=== PATIENT | female | born 1940 | race Caucasian/White ===

== ENCOUNTER 2017-02-14 06:08 | Inpatient (IN) | payer MEDICARE, OTHER ==
[~2017-02-14] VITALS: Ht 157.5 cm; Wt 53.6 kg
[2017-02-14] VITALS (14 sets, daily range): BP systolic 133–191; BP diastolic 68–93; PULSE 60–88; RESP 16–26; O2SAT 82–100
[~2017-02-14 06:08] MED LIST: Albuterol Sulfate INH; Aspirin PO; BALS750C PO; CHOL40003 PO; DENO60DI SQ; FLUT12AE6 IH; IBUP800T28 PO; LACT1CAP37 PO; OMEP-113 PO; TRIA60LO3 TOP
--- NOTE | 2017-02-14 06:10 | ED.REPORT ---
HPI-General Illness Date of Service Feb 14, 2017 ED Provider: Mattie Lubin MD A pleasant 76 year old female with a history of asthma, COPD, paroxysmal atrial fibrillation presents to the ER via EMS due to shortness of breath, and O2 saturation in the mid-80's overnight. Symptoms have been treated with home nebulizers with no relief. She also reports nausea with onset of respiratory symptoms, palpitations throughout the night, insomnia secondary to symptoms, and a single bout of diarrhea this morning. Patient denies chest pain, vomiting , hematemesis, bloody/tarry stools, and changes in bowel/urinary habits. Currently symptoms are markedly improved. On January 15, 2017 patient had a CVA and had TPA, residual visual changes. At that time she was found to have atrial fibrillation and started on Pradaxa 150mg, and Toprol 25mg for PSVT. Since her hospitalization she has noticed some mild swelling of her right ankle. She has been on home O2 at night since her stroke. Nursing Notes Stated Complaint: SHORT OF BREATH Nursing Notes Reviewed: Yes Allergies: Coded Allergies: Contrast Media (Verified Allergy, Severe, Shortness of Breath, 08/31/13) Bisphosphonates (Verified Allergy, Unknown, 08/31/13) Penicillins (Verified Allergy, Unknown, 08/31/13) codeine (Verified Allergy, Unknown, 08/31/13) nitrofurantoin (Verified Allergy, Unknown, 08/31/13) Scheduled ([Albuterol Sulfate]) 90 MCG INH 2 puffs q 4-6hr prn ([Aspirin]) 81 MG PO DAILY Balsalazide Disodium (Balsalazide Disodium) 750 Mg Capsule 1,500 MG PO BID Cholecalciferol (Vitamin D3) (Vitamin D3) 2,000 Unit Capsule 2,000 UNIT PO DAILY Denosumab (Prolia) 60 Mg/1 Ml Syringe 60 MG SQ [id number] Fluticasone/Salmeterol (Advair Hfa 230-21 Mcg Inhaler) 12 Gm Hfa.aer.ad 1 PUFF IH BID Lactobacillus Rhamnosus GG (Culturelle) 1 Each Capsule 1 EACH PO BIDWM Omeprazole Magnesium (Omeprazole) 20 Mg Capsule.dr 20 MG PO BID Triamcinolone Acetonide (Triamcinolone Acetonide) 60 Ml Lotion 1 APPLIC TOP BID Scheduled PRN Ibuprofen (Ibuprofen) 800 Mg Tablet 800 MG PO DAILY PRN PRN For Pain General Time Seen by MD: 06:10 Chief Complaint Other (Shortness of Breath) Hx Obtained From: Patient, EMS Arrived By: Ambulance Sudden in Onset?: No Onset Occurred: Yesterday Symptom Duration: Since onset Associated with: Reports: Nausea, Denies: Chest pain, Vomiting Pertinent Negative: Pt denies other symptoms Context Related History: Reports Asthma, Reports COPD Similar Sx Previous: Yes Past Medical History Past Medical History Notes: CODE STATUS: FULL CODE Past Medical History Constipation Chronic back pain COPD Kumar's esophagus CVA January 15, 2017 had TPA, residual visual changes At that time she was found to have atrial fibrillatino and started on Pradaxa 150mg and Toprol 25mg for PSVT Reports: Asthma, Stroke Reports: Atrial fibrillation (paroxysmal) Past Surgical History Hysterectomy back surgery Smoking History Current Every Day Smoker Ambulatory Status Independent Review of Systems Full Review of Systems Constitutional: Denies: Chills, Fever Respiratory: Reports: Shortness of breath, Denies: Non-productive cough Cardiovascular: Reports: Palpitations, Denies: Chest pain GI: Reports: Diarrhea, Nausea, Denies: Abdominal pain, Bloody/tarry stool, Hematemesis, Hematochezia, Melena , Vomiting Psychiatric: Reports: Insomnia Complete sys rev & neg: except as marked. Physical Exam Vital Signs Vital Signs Date Time Temp Pulse Resp B/P Pulse Ox O2 Delivery O2 Flow Rate FiO2 02/14/17 08:55 65 26 176/83 95 Nasal Cannula 2 02/14/17 08:14 79 22 91 albuterol tx 02/14/17 08:00 88 20 97 Nasal Cannula 2 02/14/17 07:55 85 25 82 Room Air 02/14/17 06:15 36.9 72 24 169/93 100 Simple Mask 6 Initial VS: Reviewed Neck: Supple, Non-tender, Full range of motion Abdomen / GI: Soft, Non-tender, No guarding, No rebound, No distention Extremities: Vascular intact, Neuro intact, No swelling, No tenderness Skin: Warm, Dry, No cyanosis Psychiatric: Mood/affect normal, Behavior normal, Normal thought content General/Constitutional: Awake, Alert, Well developed Appearance / Presentation: Positive: Cachectic Head / Eyes: Normocephalic, PERRL, EOMI Respiratory / Chest: No rales, No rhonchi, No stridor, No chest tenderness, No chest wall deformity Wheezing / Retractions: Positive: Wheeze insp/exp diffuse Scattered wheezes throughout, worse in the lower lung guadarrama. Cardiovascular: No murmurs Heart Rate / Rhythm: Positive: Irregular rhythm, Tachycardia Difficult to hear over breath sounds. Skin: Warm, Dry, Intact Color / Condition: Positive: Rash present Rash / Lesion Notes: Scattered mild psoriatic plaques. Neurologic: Oriented X3, Speech NL, No motor deficits, No sensory deficits, CN II - XII intact, Cerebellar NL, Memory NL Residual peripheral visual deficits from recent stroke, otherwise normal neurologically. Interpretation & Diagnostics Lab Results Interpretation Result Diagram: 02/14/17 0645 02/14/17 0610 Test 02/14/17 06:10 02/14/17 06:45 02/14/17 06:50 02/14/17 07:55 D-Dimer 1.60mg/L FEU (<0.50) Hold Blue Top Tube Received (Received) Sodium Level 142mEq/L (134-144) Potassium Level 4.4mEq/L (3.5-5.2) Chloride Level 103mEq/L (97-108) Carbon Dioxide Level 24mmol/L (18-29) Blood Urea Nitrogen 21mg/dL (8-27) Creatinine 0.83mg/dL (0.57-1.00) Estimat Glomerular Filtration Rate 96mL/min (>59) Glucose Level 152mg/dL (60-99) Calcium Level 9.5mg/dL (8.5-10.1) Magnesium Level 2.1mg/dL (1.6-2.6) Total Bilirubin 0.4mg/dL (0.0-1.2) Aspartate Amino Transf (AST/SGOT) 28U/L (0-50) Alanine Aminotransferase (ALT/SGPT) 13U/L (0-32) Alkaline Phosphatase 92U/L (25-165) Troponin T 0.010ug/L (0.0-0.011) Pro-B-Type Natriuretic Peptide 1127pg/mL (0-738) Total Protein 7.9g/dL (6.4-8.4) Albumin 4.4g/dL (3.4-5.0) Procalcitonin 0.05ng/mL (0.00-0.08) Hold [place] Top Tube Received (Received) White Blood Count 13.5th/mm3 (3.8-10.1) Red Blood Count 4.80mil/mm3 (3.90-5.20) Hemoglobin 14.7g/dL (12.0-15.6) Hematocrit 44.1% (35.0-46.0) Mean Corpuscular Volume 91.9fL (81-100) Mean Corpuscular Hemoglobin 30.6pg (27.0-35.0) Mean Corpuscular Hemoglobin Concent 33.3% (32.0-37.0) Red Cell Distribution Width 14.2% (12.3-15.4) Platelet Count 167bil/L (150-400) Neutrophils (%) (Auto) 81.0% (40-74) Lymphocytes (%) (Auto) 7.3% (14-46) Monocytes (%) (Auto) 5.2% (4-12) Eosinophils (%) (Auto) 6.1% (0-5) Basophils (%) (Auto) 0.3% (0-3) Hold Zee Top Tube Received (Received) Urine Color Straw (YELLOW) Urine Appearance Clear (CLEAR,HAZY) Urine pH 7.0 (5.0-8.0) Urine Specific Moore 1.015 (1.003-1.035) Urine Protein 30mg/dL (NEG,TRACE) Urine Glucose (UA) Negativemg/dL (NEGATIVE) Urine Ketones Negativemg/dL (NEGATIVE) Urine Occult Blood Negative (NEGATIVE) Urine Nitrite Negative (NEGATIVE) Urine Bilirubin Negative (NEGATIVE) Urine Urobilinogen Normalmg/dL (NORMAL) Urine Leukocyte Esterase Negative (NEGATIVE) Urine RBC 0-2/hpf (0-2) Urine WBC 0-5/hpf (0-5) Urine Epithelial Cells Occasional/hpf (NONE-MOD) Urine Crystals None seen (NONE SEEN) Urine Bacteria Few/hpf (NONE-FEW) Urine Hyaline Casts None/lpf (NONE) Urine Granular Casts None seen (NONE SEEN) Urine Waxy Casts None seen (NONE SEEN) Urine Red Blood Cell Casts None seen (NONE SEEN) Urine White Blood Cell Casts None seen (NONE SEEN) Urine Mucus None seen (None Seen) Urine Trichomonas None seen (NONE SEEN) Urine Yeast None (NONE SEEN) Urinalysis Comment None Urine Culture Reflexed Not indicated Test 02/14/17 08:00 02/14/17 10:25 Hold Urine Received (Received) Urine Legionella pneumophilia Ag Negative (Negative) Lactic Acid Level 1.2mmol/L (0.4-2.0) ECG Interpretation ECG Interpretation: Sinus rhythm, rate 71 No acute ischemia Old anteroseptal infarct Time: 06:20 Interpreted by: ED physician Rhythm Strip Interpretation : Rhythm Strip Interpretation: Between sinus rhythm and rapid rhythm in the 140s, unclear if this is atrial flutter or PSVT Time: 06:14 Rhythm Strip Interpretation: Interpreted by me ABG Interpretation ABG Interpretation: pH: 7.234 pCO2: 69 pO2: 117.0 cHCO3: 29.1 cBase: 0.7 Exam Performed by: Allied health pract Exam Interpreted by: ED physician X-Ray Chest Interpretation Chest Xray Interpretation: IMPRESSION: Coarse appearance of the interstitium suspicious for mild edema/fluid overload. Correlate clinically. Dictated by: Shaji Chicas RRA Interpreted: Jocelyn Johansen MD on 02/14/2017 at 8:32 Transcribed by: WALI on 02/14/2017 at 8:33 View: Portable, 1 view Interpretation / Wet Read by: Interpret - Radiologist Re-Eval/Medical Decision Med Decision/Clinical Course 55-year-old woman presents with wheezing and increasing respiratory distress that been worse over the last 12 hours also associated with rapid heart rate. She has a diagnosis of paroxysmal A. fib and PSVT. When medics initially arrived her heart rate was in the 150s. Saturations were in the low 80s. By the time she arrives to the emergency room her heart rate is down into the 70s a sinus rhythm, oxygen saturations are up to 95%. She does not describe fevers or chills does not describe significant cough or infectious disease complaints. Of note she was seen at [facility] 3 weeks ago diagnosed with a stroke and received TPA she was briefly intubated during that episode. She has been home and has had only mild visual symptoms continuing Initial concern was for congestive heart failure secondary to paroxysmal atrial fibrillation and rate related. Possibility of PE was entertained however she is on xaralto and does not have any unilateral lower extremity edema. Enzymes return her white count is elevated chest x-ray suggestive of some mild fluid overload. At that point she asks to get up to go to the bathroom and in helping her to the bathroom her saturations dropped to the low 80s. She is assisted back to bed and saturations gradually increase up to the low 90s with oxygen supplementation. She has been coughing more and actually produces some yellowish green sputum that is sent for culture. Orders for lactate and blood cultures respiratory viral panel etc., ordered and she is started on health care associated pneumonia based on the fact that she was hospitalized within the last 3 weeks with intubation. Vancomycin and Levaquin and cefepime are ordered. Reviewed CODE STATUS, she states that she would like to be a full code including intubation at this point records from [facility] indicate DO NOT RESUSCITATE at that point, will need to be clarified that she is feeling a bit better. Responding slightly to steroids and nebulizers. Remains afebrile. She is not given extra fluid as her blood pressure is stable. By mouth metoprolol has helped with the recurrent episodes of tachycardia and at this point she is mostly in the sinus rhythm in the 80s. She is also not given Lasix for presumed mild rate-related heart failure in the setting of infection. We will be admitted to PCU with healthcare associated pneumonia, respiratory distress, acute COPD exacerbation, recurrent paroxysmal atrial fibrillation, congestive heart failure due to rapid heart rate. No evidence of STEMI or acute coronary syndrome at this point. Had considered CT scan to completely rule out DVT given her elevated d-dimer however she is allergic to contrast. May benefit from echocardiogram to look for right-sided pressures as a side effect of PE. Remains on xaralto after getting up to bathroom, sat down to 80%, RR increased to 30-35, ABG shows increasing CO2 and decreasing pH. Started on bipap for progressive resp failure. Sats up, rr down, much more comfortable. Stable for floor transfer at this time. Source of Hx: Old records Time of Eval: 10:04 Re-Evaluation/Progress Note: Patient's O2 sat dropped to the low 80's when she got up to use the restroom. She is now back in bed, visibly uncomfortable and diaphoretic with labored breathing and productive cough. On re-examination she is no longer wheezing. Discussed lab and x-ray results and need for admission. Patient is amenable to the plan. All other questions addressed. CODE STATUS: FULL CODE Time of Eval: 10:16 Re-Evaluation/Progress Note: Records from [facility] obtained and reviewed. Time of Eval: 10:43 Re-Evaluation/Progress Note: Patient's respiratory status is decompensating, O2 saturation in the mid 90's, respiratory rate is in the 30's and she appears fatigued. Negative blood gas and put on BiPAP. Time of Eval: 11:11 Re-Evaluation/Progress Note: Increasing respiratory distress. Increased confusion. Concern with increasing CO2 level. Poor air movement. Responded nicely to starting BiPAP. Consultation : Referral / Consult Name: Anjel Pinzon MD Consulted With: Hospitalist Call Returned at: 10:59 Yeast Culture Operator: Agrees with eval, Agrees with plan, Accepts admit Counseled Regarding: Diagnosis, Lab results, Need for admission Discharge & Departure Primary Impression: Acute respiratory failure with hypoxia and hypercarbia Additional Impressions: Pneumonia CHF (congestive heart failure) COPD (chronic obstructive pulmonary disease) Respiratory distress Atrial fibrillation with rapid ventricular response Disposition: ADMITTED TO HOSPITAL Discharge Condition All VS Reviewed: Yes Condition: Stable Referrals: Danyel Lee MD (PCP) Crit Care Except Billable Proc Time Spent: 30-74 minutes (37) Services Performed: Patient management by me, Time spent at bedside, Reviewing test results, Reviewing imaging, Discussing patient care, Documentation in record Scribe Attestation Portions of this note were transcribed by Victor Manuel Pepper. I, Dr. Lubin, personally performed the history, physical exam and medical decision-making; I reviewed and confirmed the accuracy of the information in the transcribed note. Signed by: Temitope Gibson, 02/14/2017 at 11:30 copies to: Danyel Lee MD Risk Factors Kelvin Coma Score > Age 5 Eye Opening: Open spontaneously (4) Verbal Response: Oriented (5) Motor Response: Obeys commands (6) Hinckley Coma Score: 15 Mattie Lubin MD Feb 14, 2017 06:10 VICTOR MANUEL PEPPER Feb 14, 2017 06:17
[2017-02-14 07:00] LABS: BASOPHILS % (AUTO) 0.3 % (0-3); EOSINOPHILS % (AUTO) 6.1 % (0-5); MONOCYTES % (AUTO) 5.2 % (4-12); Mean Corpuscular Hemoglobin 30.6 pg (27.0-35.0); Mean Corpuscular Volume 91.9 fL (81-100); Platelet Count 167 bil/L (150-400)
[2017-02-14 07:06] LABS: TROPONIN T 0.01 ug/L (0.0-0.011)
[2017-02-14 07:18] LABS: Magnesium 2.1 mg/dL (1.6-2.6)
[2017-02-14] MEDS ORDERED: Albuterol 2.5 mg/3 mL Inhalation Solution NEB ONE (08:00)
[2017-02-14] MEDS ORDERED: MethylprednisoLONE Sodium Succinate 62.5 mg/mL 2 mL Inj IVPUSH ONE (08:00)
--- NOTE | 2017-02-14 08:33 | DRSVH ---
PROCEDURE: X-RAY CHEST ONE VIEW, PORTABLE ([id number]) INDICATIONS: dyspnea TECHNIQUE: One view of the chest was acquired. COMPARISON: [facility], CR, XR CHEST 2VW, 07/16/2015, 12:05. [facility], CR , CHEST 1VW (PORTABLE), 11/19/2014, 14:34. FINDINGS: Surgical changes and devices: None. Lungs and pleura: No pleural effusions or pneumothorax. There is coarse in appearance of the inters titium suspicious for edema. No focal lung consolidation. Mediastinum: Mediastinal contours appear normal. Heart size is normal. Bones and chest wall: No suspicious bony lesions. Overlying soft tissues appear unremarkable. IMPRESSION: Coarse appearance of the interstitium suspicious for mild edema/fluid overload. Correlat e clinically. Dictated by: Shaji GIRARD Interpreted: Jocelyn Johansen MD on 02/14/2017 at 8:32 Transcribed by: WALI on 02/14/2017 at 8:33 Approved by: Jocelyn Johansen M.D. on 02/14/2017 at 15:45
[2017-02-14] MEDS ORDERED: Vancomycin Dose per Pharmacist XX ONE (10:15)
[2017-02-14] MEDS ORDERED: levoFLOXacin Inj 750 MG in IV Premix 1 EACH IV ONE (10:15)
[2017-02-14] MEDS ORDERED: Cefepime Inj 2 GM in IV Premix 1 EACH IV ONE (10:15)
[2017-02-14] MEDS ORDERED: Vancomycin Inj 1,000 MG in IV Premix 1 EACH IV ONE (10:25)
[2017-02-14 10:49] LABS: APPEARANCE,URINE CLEAR (CLEAR,HAZY); COLOR,URINE STRAW (YELLOW); OCCULT BLOOD,URINE NEGATIVE (NEGATIVE); UROBILINOGEN,URINE NORMAL (NORMAL)
--- NOTE | 2017-02-14 11:04 | ABG ---
DateTimeAnalyzed 10:58:05 -_ pH ____7.234 - pCO2 ___69.1__ -mmHg pO2 117 -mmHg HCO3- ___29.1__ -mmol/L ABE ____0.7__ -mmol/L tHb ___15.4__ -g/dL O2Hb ___96.8__ -% COHb ____2.1__ -% MetHb ____0.0__ -% sO2 ___98.9__ -% FIO2 ___21.0__ -% Drawn By btl - Date/Time Notified____ 11:04:00 -_ Liter_Flow ____3.00_ -L/min Oxygen Device 1 __CANNULA - Notified By btl - Notified Whom ___Dr. Mattie Laursen -__ B 758 -mmHg K+ ____5.0__ -mmol/L tO2 ___21.1__ -Vol% Anjel test N/A -
[2017-02-14] MEDS ORDERED: Albuterol-Ipratropium 3 mL Inhalation Solution NEB ONE (11:20)
[2017-02-14] MEDS ORDERED: Ondansetron 2 mg/mL 2 mL Inj IVPUSH ONE (11:20)
[2017-02-14] MEDS ORDERED: Magnesium Sulf 2 Gm/50mL Water 2 GM in IV Premix 1 EACH IV ONE (11:20)
--- NOTE | 2017-02-14 12:45 | NUR ---
Arrival to PCC Pt arrived from ED, pt was on Bipap when she arrived. Pt wanted to be taken off of Bipap soon after arrival, she is alert and orient. Bipap taken off, 2LNC placed, pt oxygenation is at 95-97%.
[2017-02-14] MEDS ORDERED: CHOL200047 PO (13:04)
[2017-02-14] MEDS ORDERED: AZEL137S11 NASAL (13:49)
[2017-02-14] MEDS ORDERED: KEN1C TOPICAL (13:49)
[2017-02-14] MEDS ORDERED: MOME13HF2 INHALATION (13:49)
[2017-02-14] MEDS ORDERED: ALBU18HF INHALATION (13:49)
[2017-02-14] MEDS ORDERED: METO25TA99 PO (13:49)
[2017-02-14] MEDS ORDERED: LISI10TA PO (13:49)
[2017-02-14] MEDS ORDERED: DABI150C PO (13:49)
[2017-02-14] MEDS ORDERED: TIOT18CA3 INHALATION (13:49)
[2017-02-14] MEDS ORDERED: Lactated Ringer's 1,000 ML IV SCH (14:19)
[2017-02-14] MEDS ORDERED: Polyethylene Glycol (PEG) 17 Gm Powder PO PRN (14:20)
[2017-02-14] MEDS ORDERED: Alum-Mag Hydrox-Simeth 30 mL Suspension PO PRN (14:20)
[2017-02-14] MEDS ORDERED: Tiotropium 18mcg/Cap 5 Capsule Inhaler Kit INHALATION SCH (14:30)
[2017-02-14] MEDS ORDERED: Albuterol 2.5 mg/3 mL Inhalation Solution NEB PRN (14:30)
--- NOTE | 2017-02-14 14:48 | PCM.HPMED ---
Subjective Date of Service Feb 14, 2017 Primary Provider: Admitting Physician: Anjel Pinzon MD Primary Care Physician: Danyel Lee MD Attending Physician: Anjel Pinzon MD Admit Status: From the Emergency Department, Full Admit, [facility] Telemetry Chief Complaint: Cough, shortness of breath. History of Present Illness: This is a 76-year-old female for 5 days history of progressive shortness of breath both with exertion and at rest. She has also had a cough which is probably been nonproductive. She became much more short of breath this morning prompting a visit to the ED. There she was found to have evidence of acute respiratory failure with hypoxia was placed on BiPAP. Chest x-ray was suggestive of possible pneumonia. She also was noted to be in atrial fibrillation with rapid ventricular response. She notes history of PSVT. 3 weeks ago she was admitted to [facility] when she developed an acute stroke while visiting [place]. She underwent lysis and was intubated in the ICU for a short time. Since being discharged she has had some ocular motor function dysfunction and has had diplopia with looking lower left and right. She has been seen by a neuro-education program specialist. She was also started on per Dr. Ld Berman for paroxysmal atrial fibrillation and presumed cardioembolic stroke. The concern is that she suffers from healthcare associated pneumonia given her recent admission. Review of Systems: The patient denies fevers or chills. No chest pain pleuritic or otherwise no nausea or vomiting. No recent diarrhea blood per rectum or melena. She also notes a long history of bladder incontinence and polyuria. No hematuria dysuria. Review of systems is otherwise reviewed and otherwise unremarkable except as noted in history of present illness. Allergies Coded Allergies: Contrast Media (Verified Allergy, Severe, Shortness of Breath, 08/31/13) Bisphosphonates (Verified Allergy, Unknown, 08/31/13) Penicillins (Verified Allergy, Unknown, 08/31/13) codeine (Verified Allergy, Unknown, 08/31/13) nitrofurantoin (Verified Allergy, Unknown, 08/31/13) Home Medications ([Albuterol Sulfate]) 90 MCG INH 2 puffs q 4-6hr prn ([Aspirin]) 81 MG PO DAILY Balsalazide Disodium (Balsalazide Disodium) 750 Mg Capsule 1,500 MG PO BID Cholecalciferol (Vitamin D3) (Vitamin D3) 2,000 Unit Capsule 2,000 UNIT PO DAILY Denosumab (Prolia) 60 Mg/1 Ml Syringe 60 MG SQ [id number] Fluticasone/Salmeterol (Advair Hfa 230-21 Mcg Inhaler) 12 Gm Hfa.aer.ad 1 PUFF IH BID Lactobacillus Rhamnosus GG (Culturelle) 1 Each Capsule 1 EACH PO BIDWM Omeprazole Magnesium (Omeprazole) 20 Mg Capsule.dr 20 MG PO BID Triamcinolone Acetonide (Triamcinolone Acetonide) 60 Ml Lotion 1 APPLIC TOP BID Scheduled PRN Ibuprofen (Ibuprofen) 800 Mg Tablet 800 MG PO DAILY PRN PRN For Pain PMH 1. Cardioembolic stroke with thrombolysis 3 weeks ago at [facility] in [place]. 2 paroxysmal supraventricular tachycardia 3. Diagnosis of paroxysmal atrial fibrillation 4 COPD 5 ongoing tobacco dependence at 2 cigarettes a day 6 incontinence Family History Negative for stroke Social History Occupation: artist Hx Alcohol Use: No Hx Substance Use: No Hx Tobacco Use: Yes (50 pkt year ) Smoking Status: Current Every Day Smoker Living Arrangement: Alone Exam Vital Signs Vital Sign - Last Date Time Temp Pulse Resp B/P Pulse Ox O2 Delivery O2 Flow Rate FiO2 02/14/17 12:41 61 23 96 24 02/14/17 12:40 36.5 133/68 BiPAP 02/14/17 08:55 2 Exam Oriented 3. No distress. Fluent speech. Normal affect. Normal skull. Normal nose and ears. Anicteric sclera, symmetric pupils Oropharynx is unremarkable, no facial droop. Neck is supple, normal thyroid. No adenopathy. Lungs are clear, normal effort rate. Heart is regular without murmur gallop or rub. Abdomen soft, nondistended or tender. Extremities, left leg with mild edema. Good radial and pedal pulses. Skin is free of rash, lesions. No petechiae or ecchymosis. Joints are grossly normal. Cranial nerves are grossly normal. Motor strength is normal in all extremities. Normal muscular tone. Extraocular movements patient does have diplopia with inferior gaze left right middle. Lab and Diagnostics Result Diagram: 02/14/17 0645 02/14/17 0610 X-Rays, CTs and MRIs Chest x-ray reveals possible airspace opacities bilaterally versus pulmonary edema. 12-lead ECG Sinus rhythm with septal Q waves but no acute ST segment changes. Assessment & Plan 1. Possible healthcare associated pneumonia, POA. The patient was started on broad-spectrum antibiotics with cefepime and Levaquin. Note she is PCN allergic. Was given one dose of vancomycin. Swab nerves obtain sputum and blood cultures. 2. Acute respiratory failure with hypoxia, POA. BiPAP as needed. 3. Paroxysmal history fibrillation, POA. Continue usual medications including per DEXA 4. Paroxysmal SVT, POA. Follow clinically. Telemetry. 5. Recent CVA, POA. Follow clinically. Usual medications. Extensive decision regarding resuscitation status and she is full resuscitation as well as intubation for respiratory failure. Inpatient status, 2 nights expected. Anjel Pinzon MD Feb 14, 2017 14:47
--- NOTE | 2017-02-14 15:02 | DRSVH ---
PROCEDURE: X-RAY CHEST ONE VIEW, PORTABLE ([id number]) INDICATIONS: dyspnea TECHNIQUE: One view of the chest was acquired. COMPARISON: [facility], CR, XR CHEST 1VW (PORTABLE), 02/14/2017, 6:32. FINDINGS: Surgical changes and devices: None. Lungs and pleura: No pleural effusions or pneumothorax. Mild edema redemonstrated not significantly from prior examination. Mediastinum: Mediastinal contours appear normal. Heart size is normal. Bones and chest wall: No suspicious bony lesions. Overlying soft tissues appear unremarkable. Mult ilevel vertebroplasty within the mid thoracic spine and lower lumbar spine fixation hardware incomple tely visualized. IMPRESSION: Coarse appearance of the interstitium redemonstrated no significant change likely related to mild edema/fluid overload. Dictated by: Shaji GIRARD Interpreted: Jocelyn Johansen MD on 02/14/2017 at 15:01 Transcribed by: WALI on 02/14/2017 at 15:02 Approved by: Jocelyn Johansen M.D. on 02/14/2017 at 15:58
[2017-02-14] MEDS ORDERED: Cefepime Inj 2 GM in IV Premix 1 EACH IV SCH (16:30)
[2017-02-14] MEDS: Dabigatran 150 mg Capsule PO SCH ×2 (17:50→20:19)
[2017-02-14] MEDS: Cefepime 1,000 MG in Dextrose 5% Minibag Plus 50 ML IV SCH (18:30)
[2017-02-14] MEDS: Triamcinolone 0.1% 30 Gm Cream TOPICAL SCH (20:18)
[2017-02-15 00:33] VITALS: BP 146/72; PULSE 68; RESP 20; O2SAT 92
[2017-02-15] MEDS: Cefepime 1,000 MG in Dextrose 5% Minibag Plus 50 ML IV SCH ×2 (00:54→10:03)
[2017-02-15 03:48] VITALS: BP 143/74; PULSE 60; RESP 20; O2SAT 98
[2017-02-15 04:01] LABS: Mean Corpuscular Hemoglobin 30.2 pg (27.0-35.0); Platelet Count 165 bil/L (150-400)
[2017-02-15 04:22] LABS: BASOPHILS % (AUTO) 0 % (0-3); EOSINOPHILS % (AUTO) 0 % (0-5); MONOCYTES % (AUTO) 5 % (4-12); NEUTROPHILS % (AUTO) 62 % (40-74)
[2017-02-15 05:26] VITALS: PULSE 72
--- NOTE | 2017-02-15 06:10 | NUR ---
Respiratory Pt reports dyspnea only on exertion; SpO2 stable on RA at HS, NC removed per pt request. SpO2 maintained between 90-94% while asleep; pt ambulated with staff to BS and subsequently desaturated to low 80s. Oxygen replaced on pt at 1.5L NC, pt SpO2 97% throughout rest of shift. VSS. Tele SR 70s.
[2017-02-15] MEDS ORDERED: Tiotropium 18mcg/Cap 5 Capsule Inhaler Kit INHALATION SCH (08:30)
[2017-02-15] MEDS ORDERED: levoFLOXacin Inj 750 MG in IV Premix 1 EACH IV SCH ×2 (08:30→14:00)
[2017-02-15] MEDS ORDERED: MeTOProlol XL 25 mg ER24 Tablet PO SCH (08:30)
[2017-02-15 09:40] VITALS: BP 175/99; PULSE 60; RESP 20; O2SAT 93
[2017-02-15] MEDS: Dabigatran 150 mg Capsule PO SCH (10:04)
[2017-02-15] MEDS: Triamcinolone 0.1% 30 Gm Cream TOPICAL SCH (10:07)
[2017-02-15 11:29] VITALS: PULSE 66
[2017-02-15 11:46] VITALS: BP 172/89; PULSE 57; RESP 18; O2SAT 97
--- NOTE | 2017-02-15 11:56 | NUR ---
Evaluation completed. Please go to "Notes" then click on "Assessments and Notes" (bottom left corner of screen). Then select appropriate discipline tab on top of screen.
--- NOTE | 2017-02-15 13:06 | NUR ---
Social Work- Initial Assessment Data: See Initial Assessment. "Jania" is a 76 year old female admited 02/14/17 for HAP, Hypoxia, AFIB with RVR per H&P. Pt's insurance is [employer] and [employer] Out of State Supp. Pt's PCP is Danyel Lee MD. SW met with pt at bedside regarding discharge plan, SW role explained. Pt alert and oriented x3. Pt resides in [facility] where she is independent [place] base. Pt is currently open with [facility]TLES RN PT OT after a stroke. SW spoke with Alvaro Antunez, [facility] liaison, regarding pt. Access given. Pt has no SNF history. Pt uses no DME at base. Pt drives. Pt has no LTC or VA benefits. Pt's DPOA is daughter Tahmina Cuellar [phone]. Pt will require resume orders at discharge. Pt will likely discharge home with daughters to transport and resume [facility] RN PT OT. SW will continue to follow. Assessment: Pt who [place] independent [place], open with Jeri [facility]TL[facility] RN PT OT after a stroke. Plan: Pt to require resume Jeri orders for RN PT OT at discharge. Pt likely to discharge home with daughters to transport via POV. SW will continue to follow. Marixa Moore, INTERN RETAIL Addendum: 02/15/17 at 1312 by BLAZE MOORE SS Amended: Links added. Addendum: 02/15/17 at 1353 by BLAZE MOORE SS Pt is nearing discharge, SW faxed resume [facility] orders to [facility] . Marixa Moore, INTERN RETAIL
--- NOTE | 2017-02-15 13:42 | PCM.DIMED ---
Discharge Instructions Date of Service Feb 15, 2017 Dates of Hospitalization Feb 14, 2017 at 11:01 Discharge Diagnosis Discharge Diagnosis 1. Possible healthcare associated pneumonia , improved dramatically and at unexpected rate.. 2. Acute respiratory failure with hypoxia, also improved rapidly. 3. COPD exacerbation. Improved. 4. Paroxysmal history fibrillation, improved. 4. Paroxysmal SVT, chronic. 5. Recent CVA, stable Diet Heart Healthy Activity Limited until seen by PCP Call your provider Fever or Chills, Shortness of breath, Chest pain Patient Instructions Use your home oxygen around the clock at 2 liters nasal cannula Keep [place] doctor appointments for Friday (pulmonary and cardiology) Follow-up Provider: Danyel Lee MD Follow-up with PCP in: 1 week Anjel Pinzon MD Feb 15, 2017 13:42
[2017-02-15] MEDS ORDERED: LEVO500T79 PO (13:44)
[2017-02-15] MEDS ORDERED: PRED50TA PO (13:44)
--- NOTE | 2017-02-15 15:17 | PCM.DC.MED ---
Discharge Summary Date of Service Feb 15, 2017 Dates of Hospitalization Date of Hospital Admission Feb 14, 2017 at 11:01 Date of Discharge: Feb 15, 2017 Providers: Admitting Physician: Hortencia Brian MD Primary Care Physician: Danyel Lee MD Attending Physician: Hortencia Brian MD Diagnosis at Time of Discharge Diagnosis at Time of Discharge 1. Possible healthcare associated pneumonia , improved dramatically and at unexpected rate.. 2. Acute respiratory failure with hypoxia, also improved rapidly. 3. COPD exacerbation. Improved. 4. Paroxysmal history fibrillation, improved. 4. Paroxysmal SVT, chronic. 5. Recent CVA, stable Consultations Not obtained Procedures XRay, CTs & MRIs Chest x-ray reveals possible airspace opacities bilaterally versus pulmonary edema. ECG 12 Lead Sinus rhythm with septal Q waves but no acute ST segment changes. Cardiac Echo Impression Not obtained Brief History This is a 76-year-old female for 5 days history of progressive shortness of breath both with exertion and at rest. She has also had a cough which is probably been nonproductive. She became much more short of breath this morning prompting a visit to the ED. There she was found to have evidence of acute respiratory failure with hypoxia was placed on BiPAP. Chest x-ray was suggestive of possible pneumonia. She also was noted to be in atrial fibrillation with rapid ventricular response. She notes history of PSVT. 3 weeks ago she was admitted to [facility] when she developed an acute stroke while visiting [place]. She underwent lysis and was intubated in the ICU for a short time. Since being discharged she has had some ocular motor function dysfunction and has had diplopia with looking lower left and right. She has been seen by a neuro-pleater. She was also started on per Dr. Ld Berman for paroxysmal atrial fibrillation and presumed cardioembolic stroke. The concern is that she suffers from healthcare associated pneumonia given her recent admission. Hospital Course 1. Possible healthcare associated pneumonia, POA. The patient was started on broad-spectrum antibiotics with cefepime and Levaquin. Note she is PCN allergic. Was given one dose of vancomycin. Swab nerves obtain sputum and blood cultures. 2. Acute respiratory failure with hypoxia, POA. BiPAP as needed. 3. Paroxysmal history fibrillation, POA. Continue usual medications including per DEXA 4. Paroxysmal SVT, POA. Follow clinically. Telemetry. 5. Recent CVA, POA. Follow clinically. Usual medications. Extensive decision regarding resuscitation status and she is full resuscitation as well as intubation for respiratory failure. Inpatient status, 2 nights expected. Hospital course. She was initially admitted with a presumptive pneumonia. Was concern for healthcare association given her recent admission to [facility] which time she was intubated for TPA and stroke. She also has extensive history of smoking. She also had atrial fibrillation which is chronic with rapid response. She was admitted for empiric antibiotics and initially required BiPAP. She then improved with both antibiotics and supplemental oxygen as well as bronchodilators. On the day of discharge she does not follow much better than expected. Although she still had breast hypoxia she does have oxygen at home and was strongly inclined to try to return home. She noted that she had used a lot of albuterol but day or 2 before as well. She had been using home oxygen only at nights before based and nighttime desaturations noted at [facility] when she was hospitalized. It was felt that it was resolved on empiric antibiotics. She will have a full fist therapy given her multiple allergies as well as consider pneumonitis or pneumonia versus age. We will simply use levofloxacin and have close surveillance. The patient also placed on prednisone 40 daily for reactive airways for the next week. Again she improved much quicker than expected and discharged after one night accordingly. Exam Vital Signs (Last) Date Time Temp Pulse Resp B/P Pulse Ox O2 Delivery O2 Flow Rate FiO2 02/15/17 11:46 36.6 57 18 172/89 97 Room Air 02/15/17 03:48 2.00 02/14/17 15:03 21 Exam Patient seen and examined on the day of discharge Test 02/14/17 06:10 02/14/17 06:50 02/14/17 07:55 02/14/17 08:00 D-Dimer 1.60mg/L FEU (<0.50) Hold Blue Top Tube Received (Received) Magnesium Level 2.1mg/dL (1.6-2.6) Troponin T 0.010ug/L (0.0-0.011) Pro-B-Type Natriuretic Peptide 1127pg/mL (0-738) Hold [place] Top Tube Received (Received) Hold [place] Top Tube Received (Received) Urine Color Straw (YELLOW) Urine Appearance Clear (CLEAR,HAZY) Urine pH 7.0 (5.0-8.0) Urine Specific [place] 1.015 (1.003-1.035) Urine Protein 30mg/dL (NEG,TRACE) Urine Glucose (UA) Negativemg/dL (NEGATIVE) Urine Ketones Negativemg/dL (NEGATIVE) Urine Occult Blood Negative (NEGATIVE) Urine Nitrite Negative (NEGATIVE) Urine Bilirubin Negative (NEGATIVE) Urine Urobilinogen Normalmg/dL (NORMAL) Urine Leukocyte Esterase Negative (NEGATIVE) Urine RBC 0-2/hpf (0-2) Urine WBC 0-5/hpf (0-5) Urine Epithelial Cells Occasional/hpf (NONE-MOD) Urine Crystals None seen (NONE SEEN) Urine Bacteria Few/hpf (NONE-FEW) Urine Hyaline Casts None/lpf (NONE) Urine Granular Casts None seen (NONE SEEN) Urine Waxy Casts None seen (NONE SEEN) Urine Red Blood Cell Casts None seen (NONE SEEN) Urine White Blood Cell Casts None seen (NONE SEEN) Urine Mucus None seen (None Seen) Urine Trichomonas None seen (NONE SEEN) Urine Yeast None (NONE SEEN) Urinalysis Comment None Urine Culture Reflexed Not indicated Hold Urine Received (Received) Urine Legionella pneumophilia Ag Negative (Negative) Test 02/14/17 10:25 02/15/17 03:45 Lactic Acid Level 1.2mmol/L (0.4-2.0) White Blood Count 11.2th/mm3 (3.8-10.1) Red Blood Count 4.51mil/mm3 (3.90-5.20) Hemoglobin 13.6g/dL (12.0-15.6) Hematocrit 40.6% (35.0-46.0) Mean Corpuscular Volume 90.0fL (81-100) Mean Corpuscular Hemoglobin 30.2pg (27.0-35.0) Mean Corpuscular Hemoglobin Concent 33.5% (32.0-37.0) Red Cell Distribution Width 14.0% (12.3-15.4) Platelet Count 165bil/L (150-400) Neutrophils (%) (Auto) 62% (40-74) Lymphocytes (%) (Auto) 26% (14-46) Monocytes (%) (Auto) 5% (4-12) Eosinophils (%) (Auto) 0% (0-5) Basophils (%) (Auto) 0% (0-3) Band Neutrophils % 4% (1-5) Hematology Comments Sodium Level 139mEq/L (134-144) Potassium Level 5.0mEq/L (3.5-5.2) Chloride Level 101mEq/L (97-108) Carbon Dioxide Level 23mmol/L (18-29) Blood Urea Nitrogen 23mg/dL (8-27) Creatinine 0.95mg/dL (0.57-1.00) Estimat Glomerular Filtration Rate 82mL/min (>59) Glucose Level 112mg/dL (60-99) Calcium Level 9.2mg/dL (8.5-10.1) Total Bilirubin 0.4mg/dL (0.0-1.2) Aspartate Amino Transf (AST/SGOT) 21U/L (0-50) Alanine Aminotransferase (ALT/SGPT) 11U/L (0-32) Alkaline Phosphatase 74U/L (25-165) Total Protein 6.6g/dL (6.4-8.4) Albumin 3.5g/dL (3.4-5.0) Procalcitonin 0.08ng/mL (0.00-0.08) Discharge Medications Discharge Medications Azelastine HCl (Azelastine HCl) 137 Mcg/0.137 Ml [place].pump 1-2 SPRAYS NASAL DAILY (Reported) Cholecalciferol (Vitamin D3) (Vitamin D3) 2,000 Unit Capsule 2,000 UNIT PO DAILY (Reported) Dabigatran Etexilate Mesylate (Pradaxa) 150 Mg Capsule 150 MG PO BID (Reported) Levofloxacin (Levofloxacin) 500 Mg Tablet 500 MG PO DAILY Prescribed by: HORTENCIA BRIAN MD Lisinopril (Lisinopril) 10 Mg Tablet 10 MG PO DAILY (Reported) Metoprolol Succinate ER (Metoprolol Succinate ER) 25 Mg Tab.er.24h 25 MG PO DAILY (Reported) Mometasone/Formoterol (Dulera 100 Mcg/5 Mcg Inhaler) 13 Gm Hfa.aer.ad 2 PUFFS INHALATION BID (Reported) Prednisone (PredniSONE) 50 Mg Tablet 40 MG PO DAILY Prescribed by: HORTENCIA BRIAN MD Tiotropium Roggen (Spiriva) 18 Mcg Cap.w.dev 1 CAPSULE INHALATION DAILY ( Reported) Triamcinolone Acet (Triamcinolone Acetonide Cream) 1 Applic/0.25 Gm Cr 1 APPLIC TOPICAL BID (Reported) As needed Albuterol Sulfate (Ventolin HFA Inhaler) 200 Puff/18 Gm Inhaler 2 PUFFS INHALATION QID PRN PRN For Shortness of Breath (Reported) Followup Plan Disposition: Home with resuming home health Discharge Diet: Heart Healthy Discharge Activity: Limited until seen by PCP Patient Instructions Use your home oxygen around the clock at 2 liters nasal cannula Keep [place] doctor appointments for Friday (pulmonary and cardiology) Follow-up Provider: Danyel Lee MD Follow-up with PCP in: 1 week Time spent 45 minutes, situation discussed with daughter in [place] as well by telephone. Hortencia Brina MD Feb 15, 2017 15:17
--- NOTE | 2017-02-15 16:22 | NUR ---
Discharge pt ordered for discharge home. discharge medications and instructions reviewed with patient. Pt escorted via wheelchair to front lobby with belongings.
== END 2017-02-15 16:35 | disposition home health service (06) | DRG 193 ==
LOC: SED 06:08 → PCC 11:01
PROVIDERS: ADMIT Hospitalist; ATTEND Hospitalist
PROC: 4A033R1 Measurement of Arterial Saturation, Peripheral, Percutaneous Approach (ICD-10-PCS; principal; 2017-02-14)
DX: J18.9 Pneumonia, unspecified organism (principal); J96.01 Acute respiratory failure with hypoxia; I47.1 Supraventricular tachycardia; J44.1 Chronic obstructive pulmonary disease with (acute) exacerbation; I48.0 Paroxysmal atrial fibrillation; J45.909 Unspecified asthma, uncomplicated; I69.398 Other sequelae of cerebral infarction; H53.9 Unspecified visual disturbance; F17.210 Nicotine dependence, cigarettes, uncomplicated

== ENCOUNTER 2017-03-07 11:38 | Emergency (ER) | payer MEDICARE, OTHER ==
[~2017-03-07] VITALS: Ht 157.5 cm; Wt 53.6 kg
[~2017-03-07 11:38] MED LIST changes: +ALBU18HF INHALATION; +AZEL137S11 NASAL; -Albuterol Sulfate INH; -Aspirin PO; -BALS750C PO; +CHOL200047 PO; -CHOL40003 PO; +DABI150C PO; -DENO60DI SQ; -FLUT12AE6 IH; -IBUP800T28 PO; +KEN1C TOPICAL; -LACT1CAP37 PO; +LEVO500T79 PO; +LISI10TA PO; +METO25TA99 PO; +MOME13HF2 INHALATION; -OMEP-113 PO; +PRED50TA PO; +TIOT18CA3 INHALATION; -TRIA60LO3 TOP
[2017-03-07 11:50] VITALS: BP 198/92; PULSE 74; RESP 12; O2SAT 100
--- NOTE | 2017-03-07 11:54 | ED.REPORT ---
HPI-Dyspnea / Wheezing Date of Service March 07, 2017 ED Provider: John Rosales MD A 76 year old female with a medical history including COPD, CVA with residual peripheral vision change, asthma, paroxysmal supraventricular tachycardia, and paroxysmal atrial fibrillation presents to the ED with shortness of breath onset two nights ago, preventing her from sleeping. Associated symptoms include headache and productive cough with yellow sputum. The patient's home health nurse measured her BP at 200/118 this morning. The patient denies chest pain, nausea, vomiting, weakness, numbness, new visual changes, or other symptoms. EMS found the patient with a systolic BP of 240 and a respiration rate of 23. She was given a Nebulizer treatment en route, with relief of her symptoms. The patient is on 2L home O2. Nursing Notes Stated Complaint: HYPERTENSION Chief Complaint: Respiratory Distress Nursing Notes Reviewed: Yes Allergies: Coded Allergies: Contrast Media (Verified Allergy, Severe, Shortness of Breath, 08/31/13) Bisphosphonates (Verified Allergy, Unknown, 08/31/13) Penicillins (Verified Allergy, Unknown, 08/31/13) codeine (Verified Allergy, Unknown, 08/31/13) nitrofurantoin (Verified Allergy, Unknown, 08/31/13) Scheduled Azithromycin (Zithromax (Z-Grant)) 250 Mg Tablet 250 MG PO DIRECTED Take two tablets by mouth on day 1, then take one tablet daily on days 2 through 5. Dabigatran Etexilate Mesylate (Pradaxa) 150 Mg Capsule 150 MG PO BID Ipratropium/Albuterol Sulfate (Iprat-Albut 0.5-3(2.5) mg/3 mL Inhalant Soln) 3 Ml Ampul.neb 3 ML IH Q6 Lisinopril (Lisinopril) 20 Mg Tablet 20 MG PO DAILY Metoprolol Succinate ER (Metoprolol Succinate ER) 25 Mg Tab.er.24h 25 MG PO DAILY Mometasone/Formoterol (Dulera 100 Mcg/5 Mcg Inhaler) 13 Gm Hfa.aer.ad 2 PUFFS INHALATION BID Prednisone (PredniSONE) 20 Mg Tablet 40 MG PO DAILY Tiotropium [place] (Spiriva) 18 Mcg Cap.w.dev 1 CAPSULE INHALATION DAILY Triamcinolone Acet (Triamcinolone Acetonide Cream) 1 Applic/0.25 Gm Cr 1 APPLIC TOPICAL BID Scheduled PRN Albuterol Sulfate (Ventolin HFA Inhaler) 200 Puff/18 Gm Inhaler 2 PUFFS INHALATION QID PRN PRN For Shortness of Breath Azelastine HCl (Azelastine HCl) 137 Mcg/0.137 Ml [place].pump 1-2 SPRAYS NASAL DAILY PRN PRN For Congestion General Time Seen by MD: 11:42 Chief Complaint Shortness of breath Hx Obtained From: Patient Arrived By: Ambulance Onset Occurred: 2 days ago Symptom Duration: Since onset Quality: Aching (Head) Severity: Current: Moderate Severity: Maximum: Moderate Context Related History: Reports: COPD Asthma History: Asthma diagnosed Recent Healthcare: No recent doctor visit Similar Sx Previous: Yes Past Medical History Past Medical History Notes: CODE STATUS: FULL CODE Past Medical History Constipation Chronic back pain COPD Kumar's esophagus CVA January 15, 2017 had TPA, residual visual changes At that time she was found to have atrial fibrillation and started on Pradaxa 150mg and Toprol 25mg for PSVT Paroxysmal supraventricular tachycardia Paroxysmal atrial fibrillation Reports: Asthma, Stroke Reports: Atrial fibrillation Past Surgical History Hysterectomy back surgery Smoking History Current Every Day Smoker Ambulatory Status Independent Review of Systems Review of Systems Note: + Hypertension Constitutional: Denies: Fever Respiratory: Reports: Prod cough, yellow, Shortness of breath Cardiovascular: Denies: Chest pain Complete sys rev & neg: except as marked. GI: Denies: Nausea, Vomiting Neurologic: Reports: Headache, Denies: Numbness, Vision change, Weakness Psychiatric: Reports: Insomnia Physical Exam Initial Vital Signs Vital Signs (First) Date Time Temp Pulse Resp B/P Pulse Ox O2 Delivery O2 Flow Rate FiO2 03/07/17 11:50 36.4 74 12 198/92 100 Room Air 03/07/17 13:31 2 Initial VS: Reviewed Head / Eyes: Atraumatic, Normocephalic ENT: Conjunctiva normal, No scleral icterus Skin: Warm, Dry, No cyanosis Neurologic: Alert, Oriented, Nonfocal Psychiatric: Mood/affect normal, Behavior normal, Normal thought content General/Constitutional: Awake, Alert Neck: Supple, Full range of motion Respiratory / Chest: Breath sounds NL, Breath sounds = bilat, No respiratory distress Cardiovascular: Heart rate NL, Regular rhythm, Heart sounds NL, No murmurs Interpretation & Diagnostics Lab Results Interpretation Result Diagram: 03/07/17 1200 5/5/17 1200 Test 03/07/17 12:00 03/07/17 12:05 White Blood Count 7.8th/mm3 (3.8-10.1) Red Blood Count 4.90mil/mm3 (3.90-5.20) Hemoglobin 15.0g/dL (12.0-15.6) Hematocrit 44.5% (35.0-46.0) Mean Corpuscular Volume 90.8fL (81-100) Mean Corpuscular Hemoglobin 30.6pg (27.0-35.0) Mean Corpuscular Hemoglobin Concent 33.7% (32.0-37.0) Red Cell Distribution Width 14.7% (12.3-15.4) Platelet Count 236bil/L (150-400) Neutrophils (%) (Auto) 72.7% (40-74) Lymphocytes (%) (Auto) 12.5% (14-46) Monocytes (%) (Auto) 5.8% (4-12) Eosinophils (%) (Auto) 8.0% (0-5) Basophils (%) (Auto) 0.9% (0-3) Sodium Level 142mEq/L (134-144) Potassium Level 4.9mEq/L (3.5-5.2) Chloride Level 102mEq/L (97-108) Carbon Dioxide Level 27mmol/L (18-29) Blood Urea Nitrogen 24mg/dL (8-27) Creatinine 0.79mg/dL (0.57-1.00) Estimat Glomerular Filtration Rate 102mL/min (>59) Glucose Level 93mg/dL (60-99) Calcium Level 9.4mg/dL (8.5-10.1) Total Bilirubin 0.3mg/dL (0.0-1.2) Aspartate Amino Transf (AST/SGOT) 22U/L (0-50) Alanine Aminotransferase (ALT/SGPT) 11U/L (0-32) Alkaline Phosphatase 86U/L (25-165) Troponin T < 0.010ug/L (0.0-0.011) Pro-B-Type Natriuretic Peptide 1480pg/mL (0-738) Total Protein 7.6g/dL (6.4-8.4) Albumin 4.2g/dL (3.4-5.0) Hold Urine Received (Received) ECG Interpretation ECG Interpretation: Sinus rhythm rate 72 Time: 12:16 Interpreted by: ED physician ECG Interpretation: SVT rate 130 Time: 13:44 Interpreted by: ED physician X-Ray Chest Interpretation Chest Xray Interpretation: IMPRESSION: 1. Cardiomegaly and increased interstitial markings are suspicious for vascular congestion or developing pulmonary edema. Please correlate clinically. 2. No consolidating pneumonia is evident. Dictated by: Graham Lee M.D. on 03/07/2017 at 11:33 View: Portable, 1 view Interpretation / Wet Read by: Interpret - Radiologist Re-Eval/Medical Decision Med Decision/Clinical Course 76-year-old female history of COPD, paroxysmal SVT, paroxysmal atrial fibrillation, CVA presenting with COPD exacerbation. Patient with shortness breath times several days. Cough productive of yellow sputum. Patient was given one nebulizer in route and felt much better. Labs are stable. Troponins negative. As she was awaiting labs patient went into SVT. Family declined adenosine. She failed vagal maneuvers. Anesthesia Attending was consulted and recommended to patient she either be admitted for sotalol loading or be discharged and follow up with her rhia. Anesthesia Attending discussed with patient and she requested to go home. She was set up with a home nebulizer and given one here and given prescription for nebulizer. She will be discharged with steroid burst and azithromycin. Return precautions given if any chest pain, shortness breath, any other new or worsening symptoms. Source of Hx: Old records Re-Evaluation/Progress #1: Time of Eval: 13:59 Re-Evaluation/Progress Note: Patient has had intermittent episodes of tachycardia. She denies worsened trouble breathing or chest pain. Discussed patient's case with her daughter. Re-Evaluation/Progress #2: Time of Eval: 14:21 Patient Status: Condition improved Re-Evaluation/Progress Note: Patient is still intermittently tachycardic. She tried "bearing down" with no relief. Discussed with patient and her daughter plan for Diltiazem. Re-Evaluation/Progress #3: Time of Eval: 15:19 Patient Status: Condition improved Re-Evaluation/Progress Note: Patient now requests discharge. Discussed with patient x-ray, EKG, and lab results, diagnosis, and plan for discharge. Follow-up and return to the ER instructions given. Patient agrees with plan for care and all questions were addressed. Consultation #1: Referral / Consult Name: Marli Rod MD Consulted With: Cardiology Call Returned at: 14:52 Quantitative Equity Head: Will see patient, Agrees with radha, Agrees with plan Consultation #2: Referral / Consult Name: Marli Rod MD Call Returned at: 14:50 Quantitative Equity Head: Agrees with radha, Agrees with plan Note: Dr. Rod evaluated patient and discussed the possibility of admission vs. discharge Counseled Regarding: Diagnosis, Lab results, Need for follow-up, When/why to return to ED Discharge & Departure Impression: Primary Impression: SVT (supraventricular tachycardia) Additional Impression: COPD exacerbation Disposition: Home Discharge Condition All VS Reviewed: Yes Condition: Improved Patient Instructions: COPD (Chronic Obstructive Pulmonary Disease) (ED), Supraventricular Tachycardia (ED) Additional Instructions: Thank you for entrusting us with your care. Use the Nebulizer as prescribed. Call your primary care provider on Friday for a follow-up appointment. Return to the ER with any new or worsening symptoms including chest pain, shortness of breath, nausea, and vomiting. Referrals: Danyel Lee MD (PCP) Crit Care Except Billable Proc Time Spent: 30-74 minutes (40) Services Performed: Patient management by me, Time spent at bedside, Reviewing test results, Reviewing imaging, Discussing patient care, Documentation in record, Time with fam/surrogate Scribe Attestation Portions of this note were transcribed by Martha Santana. I, Dr. Rosales, personally performed the history, physical exam, and medical decision-making; I reviewed and confirmed the accuracy of the information in the transcribed note. Signed by: Temitope Hoff, 03/07/2017, 15:35 copies to: Danyel Lee MD, Ben M MD March 07, 2017 11:54 MARTHA SANTANA March 07, 2017 12:02
[2017-03-07] MEDS ORDERED: MethylprednisoLONE Sodium Succinate 62.5 mg/mL 2 mL Inj IVPUSH ONE (12:05)
[2017-03-07 12:11] LABS: BASOPHILS % (AUTO) 0.9 % (0-3); MONOCYTES % (AUTO) 5.8 % (4-12); Mean Corpuscular Hemoglobin 30.6 pg (27.0-35.0); Mean Corpuscular Volume 90.8 fL (81-100); NEUTROPHILS % (AUTO) 72.7 % (40-74); Platelet Count 236 bil/L (150-400)
--- NOTE | 2017-03-07 12:36 | DRSVH ---
PROCEDURE: X-RAY CHEST ONE VIEW, PORTABLE ([id number]) INDICATIONS: dyspnea TECHNIQUE: One view of the chest was acquired. COMPARISON: [facility], CR, CHEST 1VW (PORTABLE), 11/19/2014, 14:34. [facility], CR, XR CHEST 1VW (PORTABLE), 02/14/2017, 6:32. [facility], CR, XR CHEST 1VW (PORTABL E), 02/14/2017, 14:33. FINDINGS: Surgical changes and devices: None. Lungs and pleura: Aeration of the lungs is similar to the previous exam. However, there is slight in creased reticular nodular interstitial prominence on the current study compared to the prior exam sonido ed 02/14/17. No lobar consolidation is evident. There is hyperexpansion of the lungs. No pneumothor ax is appreciated. No pleural effusion is evident. Mediastinum: Mediastinal contours appear normal. Heart size is enlarged. There is aortic atheroscl erosis. Bones and chest wall: No suspicious bony lesions. Bone mineralization is diffusely decreased. Post operative changes related to prior kyphoplasty/vertebroplasty are noted. Overlying soft tissues appea r unremarkable. IMPRESSION: 1. Cardiomegaly and increased interstitial markings are suspicious for vascular congestion or develo ping pulmonary edema. Please correlate clinically. 2. No consolidating pneumonia is evident. Dictated by: Graham Lee M.D. on 03/07/2017 at 11:33 Approved by: Graham Lee M.D. on 03/07/2017 at 11:34
[2017-03-07 13:31] VITALS: BP 153/99; PULSE 126; RESP 32; O2SAT 97
[2017-03-07] MEDS ORDERED: 0.9% Sodium Chloride 250 ML IV ONE (14:10)
[2017-03-07] MEDS ORDERED: Diltiazem 5 mg/mL 5 mL Inj IVPUSH ONE ×2 (14:10→14:40)
[2017-03-07] MEDS ORDERED: Albuterol-Ipratropium 3 mL Inhalation Solution NEB ONE (14:10)
[2017-03-07 14:26] VITALS: PULSE 109; RESP 24; O2SAT 98
[2017-03-07 14:30] VITALS: BP 165/100; PULSE 139; RESP 13; O2SAT 96
[2017-03-07] MEDS ORDERED: IPRA3AMP IH (15:22)
[2017-03-07] MEDS ORDERED: PRE20 PO (15:22)
[2017-03-07 15:23] VITALS: BP 142/76; PULSE 114; RESP 21; O2SAT 93
[2017-03-07] MEDS ORDERED: AZIT250T4 PO (15:23)
[2017-03-07] MEDS ORDERED: LISI-567 PO (15:41)
[2017-03-07 16:08] VITALS: BP 142/76; PULSE 114; RESP 21; O2SAT 93
--- NOTE | 2017-03-08 03:21 | CONS ---
[address] [address] CONSULTATION REPORT PATIENT: MARGARITA HOOD : 1940 MR#: [id number] ADMIT: 03/07/2017 JOB ID: [id number] DATE OF SERVICE: 03/07/2017 CHIEF COMPLAINT: Regular narrow complex tachycardia. HISTORY OF PRESENT ILLNESS: The patient is a 76-year-old woman with history of regular narrow complex tachycardia, then on personal review of the EKG is most consistent with atrial tachycardia with a very short ID interval. Patient says that she has been having severe shortness of breath. She had an underlying emphysema. She received prednisone and albuterol meter dose inhaler. Her breathing is better but she feels significant awareness of palpitations. Her EKG shows salvos of regular narrow complex tachycardia. The longest documented omari is 11 beats with associated [address] depression in the lateral leads and cardiology is consulted to assist with management. The patient says that she takes Toprol XL at home. She was briefly loaded with sotalol as an outpatient, but after a single dose she developed significant palpitation. Flecainide was attempted but was not effective. Apparently diltiazem was attempted in the past but it was not effective. Diltiazem was administered in the emergency department, but the patient states was not effective. The patient's management in the ER was complicated by her reluctance to agree with the ER physician's recommended course of treatment. Also she had very high blood pressure 240 mmHg on arrival. PAST MEDICAL HISTORY: 1. COPD. 2. Kumar's esophagus. 3. Stroke, March 17, 2017, had tPA with residual vision changes. She says at that time she was found to have AFIB and started on Pradaxa. The patient says in her mind the diagnosis of AFib is in question. 4. Supraventricular tachycardia with multiple antiarrhythmic medications that have been attempted and she is closely monitored by Dr. Cruz of [facility]. PAST SURGICAL HISTORY: 1. Hysterectomy. 2. Back surgery. SMOKING HISTORY: The patient is a current every day smoker. She is accompanied today by her daughter who is the patient's . FAMILY HISTORY: Reviewed and noncontributory. REVIEW OF SYSTEMS: Significant for hypertension, cough productive of yellow sputum, shortness of breath, palpitations, chest pain, headache. She denies nausea. HOME MEDICATIONS: 1. Pradaxa 150 mg twice a day. 2. Lisinopril 20 mg daily. 3. Toprol XL 25 mg daily. 4. Prednisone 40 mg daily. 5. Spiriva. 6. Azithromycin. 7. DuoNeb as directed. PHYSICAL EXAMINATION: Temperature 36.4, pulse 74, blood pressure 198/92, pulse 100% on room air. Thin older lady in no apparent distress. Eyes: No scleral icterus. Neck is supple. No lymphadenopathy. Lungs with decreased breath sounds bilaterally. Heart: Normal S1, S2. No murmurs, rubs or gallops. Heart sounds are distant. Abdomen is soft, positive bowel sounds. No hepatosplenomegaly. Extremities: Warm, well perfused. No clubbing, cyanosis or edema. Skin: No rashes or lesions. DIAGNOSTIC DATA: X-ray showed cardiomegaly and increased interstitial markings, but no consolidation or pneumonia. ASSESSMENT AND PLAN: This is a 76-year-old woman. She is coming in with SVT and associated chest discomfort in the setting of chronic obstruction pulmonary disease exacerbation and hypertensive urgency. In particular in terms of her dysrhythmia, I reviewed Dr. Cruz's available notes. She has been closely monitoring this patient for many years and most recently issued her a ZIO Patch which she just now . I told the patient that we certainly cannot probably achieve cure of her tachyarrhythmia. She struggles with this problem since she was 22 years old and it is not realistic for us to fix it during this hospitalization. I have told her that any time she has increased adrenergic stimulation be it from respiratory distress in the setting of COPD flare or beta agonist that she uses to alleviate her shortness of breath, that can be easily be a trigger for supraventricular tachycardia. Dr. Cruz's most recent note suggests that she recommend sotalol load for her and I told I could offer her hospitalization for sotalol load. We would start with 80 mg twice a day and monitor QT interval closely. I asked her to think about it. When I came to evaluate her, it turned out that she has been discharged from the emergency department because it sounds like she did not really want to be hospitalized at [facility] for sotalol load, and I think it is reasonable and she is closely monitored by Dr. Cruz as an outpatient. Thank you very much for the opportunity to evaluate her.
== END 2017-03-07 16:10 | disposition home or self-care (01) ==
LOC: EDSEX 11:38 → SED 11:38 → EDBD 11:38 → EDUNIT# 11:38 → SED 16:10
DX: I47.1 Supraventricular tachycardia (principal); J44.1 Chronic obstructive pulmonary disease with (acute) exacerbation; R51 Headache; J45.909 Unspecified asthma, uncomplicated; Z91.041 Radiographic dye allergy status; Z86.73 Personal history of transient ischemic attack (TIA), and cerebral infarction without residual deficits; Z88.8 Allergy status to other drugs, medicaments and biological substances; Z88.0 Allergy status to penicillin; Z88.5 Allergy status to narcotic agent
CPT/HCPCS: 36415; 71010; 80053; 83880; 84484; 85025; 93005; 94664; 94799; 96374; 96375; 99291; J2930; J7050; J7620

== ENCOUNTER 2017-04-09 19:41 | Emergency (ER) | payer MEDICARE, OTHER ==
[~2017-04-09] VITALS: Ht 160 cm; Wt 52.3 kg
[~2017-04-09 19:41] MED LIST changes: +AZIT250T4 PO; -CHOL200047 PO; +IPRA3AMP IH; -LEVO500T79 PO; +LISI-567 PO; -LISI10TA PO; +PRE20 PO; -PRED50TA PO
--- NOTE | 2017-04-09 19:59 | ED.REPORT ---
HPI-Abd Pain F 40 and Over Date of Service Apr 09, 2017 ED Provider: Ruperto Ambrose MD A 76 year old female with a history of COPD, CVA with residual peripheral vision change, asthma, paroxysmal SVT, and atrial fibrillation presents to the ED via EMS with nausea and vomiting that began a few days ago. Associated symptoms include diffuse abdominal pain and a subjective fever. Last BM was on . Patient also endorses reports back pain secondary to a reported compression spinal fracture. She denies any dysuria. Patient was recently seen in the ED on 03/09 for SVT and was discharged in good condition with plan to follow up with PCP. Has been on opiates for back pain, assumed cause of constipation, has Rx for methylnaltrexone, planning to start in am. Nursing Notes Stated Complaint: NAUSEA, VOMITING, BACK PAIN Chief Complaint: Female Abdominal Pain Nursing Notes Reviewed: Yes Allergies: Coded Allergies: Contrast Media (Verified Allergy, Severe, Shortness of Breath, 04/09/17) Bisphosphonates (Verified Allergy, Unknown, 04/09/17) Penicillins (Verified Allergy, Unknown, 04/09/17) codeine (Verified Allergy, Unknown, 04/09/17) nitrofurantoin (Verified Allergy, Unknown, 04/09/17) Scheduled Azithromycin (Zithromax (Z-Grant)) 250 Mg Tablet 250 MG PO DIRECTED Take two tablets by mouth on day 1, then take one tablet daily on days 2 through 5. Dabigatran Etexilate Mesylate (Pradaxa) 150 Mg Capsule 150 MG PO BID Ipratropium/Albuterol Sulfate (Iprat-Albut 0.5-3(2.5) mg/3 mL Inhalant Soln) 3 Ml Ampul.neb 3 ML IH Q6 Lisinopril (Lisinopril) 20 Mg Tablet 20 MG PO DAILY Metoprolol Succinate ER (Metoprolol Succinate ER) 25 Mg Tab.er.24h 25 MG PO DAILY Mometasone/Formoterol (Dulera 100 Mcg/5 Mcg Inhaler) 13 Gm Hfa.aer.ad 2 PUFFS INHALATION BID Prednisone (PredniSONE) 20 Mg Tablet 40 MG PO DAILY Tiotropium Industry (Spiriva) 18 Mcg Cap.w.dev 1 CAPSULE INHALATION DAILY Triamcinolone Acet (Triamcinolone Acetonide Cream) 1 Applic/0.25 Gm Cr 1 APPLIC TOPICAL BID Scheduled PRN Albuterol Sulfate (Ventolin HFA Inhaler) 200 Puff/18 Gm Inhaler 2 PUFFS INHALATION QID PRN PRN For Shortness of Breath Azelastine HCl (Azelastine HCl) 137 Mcg/0.137 Ml [place].pump 1-2 SPRAYS NASAL DAILY PRN PRN For Congestion General Time Seen by MD: 19:58 Chief Complaint Vomiting mild Hx Obtained From: Patient Arrived By: Ambulance Sudden in Onset?: No Onset Occurred: 3 days ago Symptom Duration: Since onset Progression since Onset: Unchanged Location: : Diffuse Quality: Painful Radiation: : Does not radiate Severity: Current: Mild Severity: Maximum: Mild Associated with: Reports: Back pain, Constipation, Fever (Subjective), Nausea, Vomiting Pertinent Negative: Pt denies other symptoms Recent Healthcare: No recent hospitalization, Recent doctor visit Risk Factors )( AAA Risk Stratification Risk factors reviewed Past Medical History Past Medical History Notes: CODE STATUS: FULL CODE PCP: Dr. Jesus Montaño MD Past Medical History Constipation Chronic back pain COPD Kumar's esophagus CVA January 15, 2017 had TPA, residual visual changes At that time she was found to have atrial fibrillation and started on Pradaxa 150mg and Toprol 25mg for PSVT Paroxysmal supraventricular tachycardia Paroxysmal atrial fibrillation Reports: Asthma, Stroke Reports: Atrial fibrillation Past Surgical History Hysterectomy back surgery Smoking History Current Every Day Smoker Social History Other Social History: Good social support, Local resident Ambulatory Status Independent Review of Systems Constitutional: Reports: Fever (Subjective) GI: Reports: Abdominal pain, Constipation, Nausea, Vomiting Female: Denies: Dysuria Musculoskeletal: Reports: Back pain Complete sys rev & neg: except as marked. Physical Exam Vital Signs Vital Signs (First) Date Time Temp Pulse Resp B/P Pulse Ox O2 Delivery O2 Flow Rate FiO2 04/09/17 20:01 36.9 93 16 123/86 93 Room Air Initial VS: Reviewed Head / Eyes: Atraumatic, Normocephalic, PERRL Neck: Supple, Non-tender, Full range of motion Extremities: Vascular intact, Neuro intact, No swelling, No tenderness Skin: Warm, Dry, No cyanosis Neurologic: Alert, Oriented, Nonfocal Psychiatric: Mood/affect normal, Behavior normal, Normal thought content General/Constitutional: Awake, Alert, No acute distress Respiratory / Chest: Atraumatic, Breath sounds NL, Breath sounds = bilat, No respiratory distress Cardiovascular: Heart rate NL, Regular rhythm, Heart sounds NL, No gallop, No murmurs, No rubs Abdomen: Atraumatic, Soft, BS normoactive, No distention Tenderness/Guarding/Rebound: Positive: Tender diffuse Back: Atraumatic Rectum / Perineum: Atraumatic, No fecal impaction RECTUM: Guiac negative Interpretation & Diagnostics Lab Results Interpretation Result Diagram: 04/09/17199904/09/17 2135 Test 04/09/17 20:00 04/09/17 21:35 04/09/17 22:04 White Blood Count 10.2th/mm3 (3.8-10.1) Red Blood Count 5.18mil/mm3 (3.90-5.20) Hemoglobin 15.9g/dL (12.0-15.6) Hematocrit 46.8% (35.0-46.0) Mean Corpuscular Volume 90.3fL (81-100) Mean Corpuscular Hemoglobin 30.7pg (27.0-35.0) Mean Corpuscular Hemoglobin Concent 34.0% (32.0-37.0) Red Cell Distribution Width 14.1% (12.3-15.4) Platelet Count 220bil/L (150-400) Neutrophils (%) (Auto) 73.9% (40-74) Lymphocytes (%) (Auto) 16.5% (14-46) Monocytes (%) (Auto) 8.7% (4-12) Eosinophils (%) (Auto) 0.2% (0-5) Basophils (%) (Auto) 0.5% (0-3) Sodium Level 139mEq/L (134-144) Potassium Level 4.4mEq/L (3.5-5.2) Chloride Level 102mEq/L (97-108) Carbon Dioxide Level 25mmol/L (18-29) Blood Urea Nitrogen 26mg/dL (8-27) Creatinine 0.94mg/dL (0.57-1.00) Estimat Glomerular Filtration Rate 83mL/min (>59) Glucose Level 102mg/dL (60-99) Calcium Level 9.2mg/dL (8.5-10.1) Magnesium Level 1.9mg/dL (1.6-2.6) Total Bilirubin 0.4mg/dL (0.0-1.2) Aspartate Amino Transf (AST/SGOT) 23U/L (0-50) Alanine Aminotransferase (ALT/SGPT) 10U/L (0-32) Alkaline Phosphatase 82U/L (25-165) Total Protein 6.8g/dL (6.4-8.4) Albumin 3.7g/dL (3.4-5.0) Lipase 14U/L (13-60) Urine Color Dark yellow (YELLOW) Urine Appearance Clear (CLEAR,HAZY) Urine pH 6.0 (5.0-8.0) Urine Specific [place] 1.025 (1.003-1.035) Urine Protein 30mg/dL (NEG,TRACE) Urine Glucose (UA) Negativemg/dL (NEGATIVE) Urine Ketones 15mg/dL (NEGATIVE) Urine Occult Blood Trace (NEGATIVE) Urine Nitrite Negative (NEGATIVE) Urine Bilirubin Small (NEGATIVE) Urine Ictotest Positive (Negative) Urine Urobilinogen 1.0mg/dL (NORMAL) Urine Leukocyte Esterase Negative (NEGATIVE) Urine RBC 3-10/hpf (0-2) Urine WBC 6-10/hpf (0-5) Urine Epithelial Cells Many/hpf (NONE-MOD) Urine Crystals None seen (NONE SEEN) Urine Bacteria Moderate/hpf (NONE-FEW) Urine Hyaline Casts None/lpf (NONE) Urine Granular Casts None seen (NONE SEEN) Urine Waxy Casts None seen (NONE SEEN) Urine Red Blood Cell Casts None seen (NONE SEEN) Urine White Blood Cell Casts None seen (NONE SEEN) Urine Mucus Present (None Seen) Urine Trichomonas None seen (NONE SEEN) Urine Yeast None (NONE SEEN) Urinalysis Comment None Urine Culture Reflexed Indicated CT Abd / Pelvis Interpretation IMPRESSION: Distended colon filled with stool, hypomotility secondary to medication, electrolyte imbalance or neurogenic etiologies should be considered. Acute compression fracture of T12 with no bony retropulsion or spinal canal compromise. Study type: Abdominal CT no contrast Interpretation / Wet Read by: Interpret - Radiologist (Nightshift) Re-Eval/Medical Decision Med Decision/Clinical Course 76 year old female with genralized abdominal pain, constipation and vomiting. Vomiting has resolved with ondansetron, we gave IV fluids and IV pain meds for back and abd pain. Exam is not especially remarkable, labs show a UTI, imaging compromised by lack of contrast- has a history of reactions to IV contrast and refused oral. Also refused an enema. Rocephin given in ED for UTI. Re-Evaluation/Progress #1: Time of Eval: 23:04 Patient Status: Condition improved Re-Evaluation/Progress Note: Patient is rechecked. Nausea has improved but abdominal pain is still present. She is offered a CT scan. Patient is refusing oral contrast. Re-Evaluation/Progress #2: Time of Eval: 23:30 Patient Status: Condition improved Re-Evaluation/Progress Note: Her symptoms have improved and she is agreeable to discharge at this time. All questions are addressed. She understands and agrees with the plan. Re-Evaluation/Progress #3: Time of Eval: 00:42 Patient Status: Condition improved Re-Evaluation/Progress Note: Pt is assigned PO challenge. She passes and agrees with plan to disharge. Re-Evaluation/Progress #4: Time of Eval: 01:07 Re-Evaluation/Progress Note: reviewed CT findings, incuding T12 fx. Pt still has back pain, tolerating PO. She and daughter would like to go. Has zofran and meds for constipation at home. Counseled Regarding: Diagnosis, Lab results, Need for follow-up, When/why to return to ED Discharge & Departure Primary Impression: Abdominal pain Abdominal location: generalized Qualified Code: R10.84 - Generalized abdominal pain Additional Impressions: Nausea and vomiting Vomiting type: unspecified Vomiting Intractability: non-intractable Qualified Code: R11.2 - Nausea with vomiting, unspecified Constipation Constipation type: drug induced constipation Qualified Code: K59.03 - Drug induced constipation T12 compression fracture Encounter type: subsequent encounter Fracture healing: with routine healing Qualified Code: M48.54XD - Collapsed vertebra, not elsewhere classified, thoracic region, subsequent encounter for fracture with routine healing Disposition: Home Discharge Condition All VS Reviewed: Yes Condition: Stable Patient Instructions: Acute Nausea and Vomiting (ED), Constipation (ED), Urinary Tract Infection in Women (ED) Additional Instructions: Thank you for trusting us with your care this afternoon. Your emergency department evaluation today included interview, examination, lab work and abdominal CT. Labs are reassuring, there does appear to be a urinary tract infection. Start methylnaotrexone tomorrow as planned. Take cephalexen 500mg 3 times a day for 5 days. Ondansetron as needed for nausea. I recommend that you schedule a follow-up appointment with your primary care physician in the next 2-3 days for a recheck. Please continue to take other home medication as directed. Please return to the emergency department for any new or worsening conditions including any worsening abdominal pain, high fevers, chills, nausea or uncontrollable vomiting. Referrals: Danyel Lee MD (PCP) Chidiibwisam Attestation Portions of this note were transcribed by Neelima Douglas. I, Dr. Ambrose personally performed the history, physical exam and medical decision-making; I reviewed and confirmed the accuracy of the information in the transcribed note. Signed by: Temitope Lemus, 04/10/17 0045. copies to: Danyel Lee MD, Donald L MD Apr 09, 2017 19:59 NEELIMA DOUGLAS Apr 09, 2017 20:26
[2017-04-09 20:01] VITALS: BP 123/86; PULSE 93; RESP 16; O2SAT 93
[2017-04-09 20:20] LABS: BASOPHILS % (AUTO) 0.5 % (0-3); EOSINOPHILS % (AUTO) 0.2 % (0-5); MONOCYTES % (AUTO) 8.7 % (4-12); Mean Corpuscular Hemoglobin 30.7 pg (27.0-35.0); Mean Corpuscular Volume 90.3 fL (81-100); NEUTROPHILS % (AUTO) 73.9 % (40-74); Platelet Count 220 bil/L (150-400)
[2017-04-09] MEDS ORDERED: Ondansetron 2 mg/mL 2 mL Inj IVPUSH ONE (20:55)
[2017-04-09] MEDS ORDERED: 0.9% Sodium Chloride 1,000 ML IV ONE (20:55)
[2017-04-09] MEDS: HYDROmorphone 0.5 mg/0.5 mL iSecure Syringe IVPUSH PRN (21:45)
[2017-04-09 22:08] LABS: Magnesium 1.9 mg/dL (1.6-2.6)
[2017-04-09] MEDS ORDERED: 0.9% Sodium Chloride 500 ML IV ONE (22:20)
[2017-04-09 22:25] LABS: APPEARANCE,URINE CLEAR (CLEAR,HAZY); COLOR,URINE DARK YELLOW (YELLOW); OCCULT BLOOD,URINE TRACE (NEGATIVE)
[2017-04-09 22:33] LABS: ICTOTEST,URINE POSITIVE (Negative)
[2017-04-09] MEDS ORDERED: cefTRIAXone Inj 2,000 MG in Dextrose 5% Minibag Plus 50 ML IV ONE (23:00)
[2017-04-10] MEDS: HYDROmorphone 0.5 mg/0.5 mL iSecure Syringe IVPUSH PRN ×2 (00:25→01:30)
[2017-04-10] MEDS ORDERED: Ipratropium 0.02% 0.5 mg/2.5 mL Inhalation Solution NEB ONE (00:30)
[2017-04-10 00:45] VITALS: PULSE 78; RESP 20; O2SAT 95
[2017-04-10] MEDS ORDERED: CEPH500C PO (01:19)
[2017-04-10 01:43] VITALS: BP 176/84; PULSE 76; RESP 18; O2SAT 92
--- NOTE | 2017-04-10 08:29 | DRSVH ---
PROCEDURE: CT ABDOMEN AND PELVIS WITHOUT CONTRAST ([id number]) INDICATIONS: 76 year-old woman with abdominal pain. TECHNIQUE: After the administration of oral contrast, 5 mm thick sections acquired from the diaphragms to the sy mphysis. 5 mm coronal and sagittal reformats were performed. For radiation dose reduction, the foll owing was used: automated exposure control, adjustment of mA and/or kV according to patient size. COMPARISON: [facility], CT, L-SPINE W/O CONTRAST, 12/27/2013, 13:06. [facility], CT, THORACIC SPINE W/O CONTRAST, 11/19/2014, 18:29. [facility], CT, ABD/PELVIS W/O C ON (PNL), 11/19/2014, 13:37. FINDINGS: Image quality: Excellent. ABDOMEN: Lung bases: Mild bronchiectasis and lung bases. There is right basilar scar. Heart size is normal. Solid organs: There are a couple of small hepatic hypodensities most likely cysts. Liver is normal i n size. Small calcified granulomas in liver. Spleen is small. Gallbladder is distended. Pancreas is normal in size. No adrenal nodules. Both kidneys are normal in size, without hydronephrosis or nep hrolithiasis. Peritoneum and bowel: There is a large amount of stool in colon. Bowel loops demonstrate normal wall thickness and caliber. No free fluid or air. Nodes and vessels: No retroperitoneal or mesenteric adenopathy by size criteria. Aorta and inferior vena cava are normal in size. Aortic calcification consistent with atherosclerosis. Miscellaneous: No ventral hernias. PELVIS: Genitourinary: Bladder wall thickness is normal. Miscellaneous: No inguinal hernias or adenopathy. Bones: Severe scoliosis. Postsurgical changes with discectomy and posterior fusion at L4-L5. There i s old severe compression fracture at T12. Mild -to-moderate compression fracture of L3 of uncertain c hronicity. IMPRESSION: 1. A large amount of stool in colon suggesting fecal impaction. 2. A couple of hepatic hypodensities, most likely cysts. 3. Calcified granulomas in liver. 4. Distended gallbladder. 5. Severe scoliosis and compression fractures in lower thoracic and lumbar spine. Dictated by: Boni Mandel M.D. on 04/10/2017 at 8:18 Approved by: Boni Mandel M.D. on 04/10/2017 at 8:27
== END 2017-04-10 01:45 | disposition home or self-care (01) ==
LOC: EDBD 19:41 → SED 19:41
DX: R10.84 Generalized abdominal pain (principal); R11.2 Nausea with vomiting, unspecified; K59.03 Drug induced constipation; M48.54XD Collapsed vertebra, not elsewhere classified, thoracic region, subsequent encounter for fracture with routine healing; N39.0 Urinary tract infection, site not specified; J44.9 Chronic obstructive pulmonary disease, unspecified; I69.398 Other sequelae of cerebral infarction; J45.909 Unspecified asthma, uncomplicated; I48.91 Unspecified atrial fibrillation; F17.200 Nicotine dependence, unspecified, uncomplicated; Z88.0 Allergy status to penicillin; Z88.5 Allergy status to narcotic agent; Z88.8 Allergy status to other drugs, medicaments and biological substances; Z88.1 Allergy status to other antibiotic agents
CPT/HCPCS: 36415; 74176; 80053; 81000; 83690; 83735; 85025; 87086; 87088; 94664; 96361; 96365; 96375; 96376; 99285; J0696; J1170; J2405; J7030; J7040